=== PATIENT | female | born 1965 | race Caucasian/White ===

== ENCOUNTER → 2018-03-22 13:19 | Outpatient (CLI) | payer OTHER, SELFPAY ==
--- NOTE | 2018-03-22 | DI.MG.S_ITS ---
UNILATERAL LEFT DIGITAL DIAGNOSTIC MAMMOGRAM 3D/2D WITH ADDITIONAL VIEWS: 03/22/2018 CLINICAL: Additional evaluation requested from prior study. Comparison is made to exams dated: 10/07/2017 mammogram, 05/01/2015 mammogram, and 11/01/2013 mammogram - [facility]. The tissue of the left breast is heterogeneously dense. This may lower the sensitivity of mammography. There are grouped regional pleomorphic calcifications in the left breast lower aspect anterior depth at the 6 o'clock position measuring 1.6 cm x 2.3 cm x 1.6 cm in extent. These are increased in number and area of involvement from prior exam. There are also coarse calcifications more consistent with dystrophic calcifications in the outer left breast. No other significant masses or calcifications are seen in the breast. IMPRESSION: SUSPICIOUS OF MALIGNANCY 2.3 cm area of grouped regional pleomorphic calcifications in the left breast are at a moderate suspicion for malignancy. A stereotactic biopsy is recommended. These results and recommendations were discussed with the patient in person at the time of the exam by [facility] Radiologist Dr. Cosmo Cabrera. This exam was interpreted at Station ID: [id number]. NOTE: For mammograms, a report in lay terms will be sent to the patient. Approximately 15% of breast malignancies will not be visualized mammographically. In the management of a palpable breast mass, a negative mammogram must not discourage biopsy of a clinically suspicious lesion. Electronically Signed By: Tyler Shin M.D. ecl/:03/22/2018 14:27:46 letter sent: Biopsy Required ACR BI-RADS Category 4c: Suspicious abnormality - moderate concern but not classic for malignancy 3344F
== END ==
PROVIDERS: PCP Physician Assistant; Visit Provider Physician Assistant
DX: R92.1 Mammographic calcification found on diagnostic imaging of breast (principal)
CPT/HCPCS: 77065; G0279

== ENCOUNTER → 2018-09-22 10:08 | Outpatient (CLI) | payer OTHER, SELFPAY ==
--- NOTE | 2018-09-22 | DI.RAD.S_ITS ---
PROCEDURE: XR HIP W PEL IF DONE LT 2V INDICATIONS: Other specified disorders of kidney and ureter TECHNIQUE: AP pelvis with lateral view(s) of the left hip(s). COMPARISON: None. FINDINGS: Bones: No fractures or dislocations. Pelvic ring appears intact. No suspicious bony lesions. Soft tissues: The visualized bowel gas pattern is normal. No suspicious soft tissue calcifications. IMPRESSION: No fracture or dislocation. Dictated by: Octavia Murphy M.D. on 09/22/2018 at 11:35 Approved by: Octavia Murphy M.D. on 09/22/2018 at 11:36
== END ==
PROVIDERS: PCP Physician Assistant; Visit Provider Physician Assistant
DX: N28.89 Other specified disorders of kidney and ureter (principal); M25.552 Pain in left hip
CPT/HCPCS: 73502

== ENCOUNTER → 2018-09-26 17:34 | Outpatient (CLI) | payer OTHER, SELFPAY ==
--- NOTE | 2018-09-26 | DI.MRI.S_ITS ---
PROCEDURE: MR SHOULDER LT WO CON INDICATIONS: LEFT SHOULDER PAIN TECHNIQUE: Noncontrast oblique coronal T2 fast spin echo with fat saturation, oblique sagittal T1 spin echo and T2 fast spin echo with fat saturation, axial T1 spin echo and T2 fast spin echo with fat saturation through the shoulder. COMPARISON: None. FINDINGS: Image quality: Excellent. Rotator cuff: There is high-grade partial-thickness tear of the supraspinatus tendon. The infraspinatus and subscapularis tendons appear intact throughout. Sagittal images demonstrate no muscle atrophy. Bones and bursae: No bone marrow contusions or fractures. There is moderate acromioclavicular severe glenohumeral joint degeneration. The acromion demonstrates conventional anatomy, without an os acromiale. No pathologic subacromial-subdeltoid or subcoracoid bursal fluid is present. Capsule and soft tissues: Degenerative fraying of the glenoid labrum. In the absence of intra-articular contrast, glenohumeral ligaments appear intact. The long head of the biceps tendon demonstrates normal location and morphology. The rotator interval appears normal, without fibrosis. The coracohumeral ligament is normal in thickness. There is moderate glenohumeral joint effusion. IMPRESSION: 1. High-grade partial-thickness tear of the supraspinatus tendon. 2. Severe glenohumeral joint degeneration. 3. Moderate acromioclavicular joint degeneration. 4. Degenerative fraying of the glenoid labrum. 5. Moderate glenohumeral joint effusion. Dictated by: Octavia Murphy M.D. on 09/27/2018 at 8:40 Approved by: Octavia Murphy M.D. on 09/27/2018 at 17:48
== END ==
PROVIDERS: PCP Physician Assistant; Visit Provider Physician Assistant
DX: M25.512 Pain in left shoulder (principal); M75.112 Incomplete rotator cuff tear or rupture of left shoulder, not specified as traumatic; M19.012 Primary osteoarthritis, left shoulder; M25.412 Effusion, left shoulder
CPT/HCPCS: 73221

== ENCOUNTER → 2020-09-11 14:07 | Outpatient (CLI) | payer OTHER, SELFPAY ==
--- NOTE | 2020-09-11 14:10 | DI.MG.S_ITS ---
BILATERAL DIGITAL DIAGNOSTIC MAMMOGRAM 3D/2D: 09/11/2020 CLINICAL: Per MD order, dense breast tissue on mammogram, hx of benign breast bx, screening for malignant neoplasm of breast. Per the patient, CBE done 06/2020 and it was normal. She denies any symptoms and is unsure why a diagnostic exam was ordered. Comparison is made to exams dated: 03/22/2018 mammogram, 10/07/2017 mammogram, and 05/01/2015 mammogram - [facility]. The tissue of both breasts is heterogeneously dense. This may lower the sensitivity of mammography. There are stable benign calcifications in the left breast. There also is a biopsy clip in the left breast. No significant masses, calcifications, or other findings are seen in either breast. There has been no significant interval change. IMPRESSION: BENIGN There is no mammographic evidence of malignancy. A 1 year screening mammogram is recommended. This exam was interpreted at Station ID: [id number]. NOTE: For mammograms, a report in lay terms will be sent to the patient. Approximately 15% of breast malignancies will not be visualized mammographically. In the management of a palpable breast mass, a negative mammogram must not discourage biopsy of a clinically suspicious lesion. Electronically Signed By: Hair Evans acr/penrad:09/11/2020 14:37:08 letter sent: Normal Exam ACR BI-RADS Category 2: Benign Finding(s) 3342F
== END ==
PROVIDERS: PCP Physician Assistant; Referring Provider Specialist; Visit Provider Specialist
DX: R92.2 Inconclusive mammogram (principal); Z98.890 Other specified postprocedural states
CPT/HCPCS: 77066; G0279

== ENCOUNTER → 2021-07-02 13:07 | Outpatient (CLI) | payer OTHER, SELFPAY ==
--- NOTE | 2021-07-02 13:11 | DI.RAD.S_ITS ---
PROCEDURE: XR CERVICAL SPINE 2V OR 3V INDICATIONS: NECK PAIN AND STIFFNESS TECHNIQUE: 3 view(s) of the cervical spine were acquired. COMPARISON: None. FINDINGS: Bones: No fractures or dislocations to the T1 level. The lateral masses of C1 appear intact on the odontoid view. No suspicious bony lesions. Loss of lordosis which could be related to muscle spasm, rigidity or simply positional. Trace retrolisthesis C6-C7. Multilevel disc degeneration, most notably and severe at the C6-C7 level and moderate to severe at the C5-C6 level. Mild multilevel mid and lower cervical spine facet joint arthropathy and uncovertebral hypertrophy. Soft tissues: No prevertebral soft tissue swelling. IMPRESSION: Loss of lordosis and multilevel spondylosis. Dictated by: Casey Crawley [facility] Interpreted: Cosmo Cabrera MD on 07/02/2021 at 13:23 Transcribed by: THERESA on 07/02/2021 at 13:25 Approved by: Cosmo Cabrera M.D. on 07/02/2021 at 15:35
== END ==
PROVIDERS: PCP Physician Assistant; Referring Provider Physician Assistant; Visit Provider Physician Assistant
DX: M54.2 Cervicalgia (principal); R20.0 Anesthesia of skin; M47.812 Spondylosis without myelopathy or radiculopathy, cervical region
CPT/HCPCS: 72040

== ENCOUNTER → 2021-07-02 13:41 | Outpatient (CLI) | payer OTHER, SELFPAY | PROVIDERS: PCP Physician Assistant; Referring Provider Student in an Organized Health Care Education/Training Program; Visit Provider Student in an Organized Health Care Education/Training Program | DX: R20.2 Paresthesia of skin (principal) | CPT/HCPCS: 95885; 95886; 95912 ==

== ENCOUNTER → 2023-02-18 12:47 | Outpatient (CLI) | payer BC, SELFPAY ==
--- NOTE | 2023-02-18 | DI.MG.S_ITS ---
BILATERAL DIGITAL SCREENING MAMMOGRAM 3D/2D WITH CAD: 02/18/2023 CLINICAL: Routine screening. Comparison is made to exams dated: 09/11/2020 mammogram, 03/22/2018 mammogram, 10/07/2017 mammogram, and 05/01/2015 mammogram - [facility]. Both breasts are heterogeneously dense, which may obscure small masses (category c / 51-75% glandular tissue). Current study was also evaluated with a Computer Aided Detection (CAD) system. The left breast has post-biopsy findings. There is a possible new 0.6 cm oval equal density asymmetry in the left breast middle depth superior region seen on the mediolateral oblique view only. No other significant masses, calcifications, or other findings are seen in either breast. IMPRESSION: INCOMPLETE: NEEDS ADDITIONAL IMAGING EVALUATION The possible new 0.6 cm oval equal density asymmetry in the left breast is indeterminate. Additional views with possible ultrasound are recommended. Based on the Tyrer Cuzick model (a risk assessment model) the patient's lifetime risk is 10.7% and her 10 year risk is 4.0%. According to the ACR, ACS, and NCCN guidelines, an annual breast MRI exam along with mammogram is recommended if the patient's lifetime risk is 20% or greater. This exam was interpreted at Station ID: [id number]. NOTE: For mammograms, a report in lay terms will be sent to the patient. Approximately 15% of breast malignancies will not be visualized mammographically. In the management of a palpable breast mass, a negative mammogram must not discourage biopsy of a clinically suspicious lesion. Electronically Signed By: Enmanuel Moon M.D. aty/:02/18/2023 17:27:25 letter sent: Additional Imaging Needed ACR BI-RADS Category 0: Incomplete 3340F
== END ==
PROVIDERS: PCP Physician Assistant; Referring Provider Physician Assistant; Visit Provider Physician Assistant
DX: Z12.31 Encounter for screening mammogram for malignant neoplasm of breast (principal)
CPT/HCPCS: 77063; 77067

== ENCOUNTER → 2023-03-22 10:09 | Outpatient (CLI) | payer BC, SELFPAY ==
--- NOTE | 2023-03-22 | DI.US.S_ITS ---
PROCEDURE: US ABDOMEN LIMITED INDICATIONS: ELEVATED AST ALT TECHNIQUE: Real-time scanning was performed of the abdominal and retroperitoneal organs, with image documentation. COMPARISON: None. FINDINGS: Liver: Increased in echogenicity. Normal in size. Gallbladder: Within normal limits. No gallstones or gallbladder wall thickening. Biliary ducts: Intrahepatic bile ducts are non-dilated. Extrahepatic bile duct caliber measures 3 mm. Normal is 6-7 mm or less in diameter, or 10 mm or less post-cholecystectomy. Pancreas: Visualized portions of the pancreas are sonographically normal. The pancreas tail is not well seen. IMPRESSION: Increased hepatic echogenicity noted possibly related to hepatic steatosis but other sources of hepatocellular disease or hepatic cirrhosis cannot be excluded. Recommend clinical correlation. Dictated by: Dale William M.D. on 03/22/2023 at 13:38 Approved by: Dale William M.D. on 03/22/2023 at 13:39
--- NOTE | 2023-03-22 | DI.MG.S_ITS ---
UNILATERAL LEFT DIGITAL DIAGNOSTIC MAMMOGRAM 3D/2D WITH ADDITIONAL VIEWS: 03/22/2023 CLINICAL: Additional evaluation requested from prior study. Comparison is made to exams dated: 02/18/2023 mammogram, 09/11/2020 mammogram, and 03/22/2018 mammogram - [facility]. The left breast is heterogeneously dense, which may obscure small masses (category c / 51-75% glandular tissue). The left breast has post-operative findings. The possible 0.6 cm oval equal density asymmetry in the left breast middle depth central to the nipple seen on the mediolateral oblique view only is no longer seen and most likely is fibroglandular tissue. This is not confirmed with additional views. No other significant masses or calcifications are seen in the breast. IMPRESSION: INCOMPLETE: NEEDS ADDITIONAL IMAGING EVALUATION An ultrasound is recommended to confirm resolution of the asymmetry in the left breast middle depth central to the nipple seen on the mediolateral oblique view only. This was performed immediately following this exam. Based on the Tyrer Cuzick model (a risk assessment model) the patient's lifetime risk is 10.7% and her 10 year risk is 4.0%. According to the ACR, ACS, and NCCN guidelines, an annual breast MRI exam along with mammogram is recommended if the patient's lifetime risk is 20% or greater. This exam was interpreted at Station ID: [id number]. NOTE: For mammograms, a report in lay terms will be sent to the patient. Approximately 15% of breast malignancies will not be visualized mammographically. In the management of a palpable breast mass, a negative mammogram must not discourage biopsy of a clinically suspicious lesion. Electronically Signed By: Olimpia atkinson/:03/22/2023 11:05:02 ACR BI-RADS Category 0: Incomplete 3340F
--- NOTE | 2023-03-22 | DI.US.S_ITS ---
LIMITED ULTRASOUND OF LEFT BREAST: 03/22/2023 CLINICAL: Patient returns today to evaluate an asymmetry in the left breast. Comparison is made to exams dated: 03/22/2023 mammogram, 02/18/2023 mammogram, 09/11/2020 mammogram - [facility], 04/04/2018 specimen, 04/04/2018 stereotactic biopsy - [facility], and 03/22/2018 mammogram - [facility]. Color flow ultrasound of the left breast 2-4 o'clock region was performed. Coffman scale images of the real-time examination were reviewed. There is a 6 mm oval cyst in the left breast at 4 o'clock anterior depth. This oval cyst is anechoic. This probably correlates with mammography findings. Color flow imaging demonstrates that there is no vascularity present. No other sonographic findings are present. IMPRESSION: BENIGN The 6 mm simple cyst in the left breast probably corresponds to the less prominent mammogram finding, and is benign. No other sonographic abnormalities. Return to annual mammogram screening schedule is recommended. Findings and recommendations were conveyed to the patient at time of exam. This exam was interpreted at Station ID: [id number]. Electronically Signed By: Olimpia atkinson/:03/22/2023 11:30:45 letter sent: Normal Exam Ultrasound BI-RADS: 2 Benign
== END ==
PROVIDERS: PCP Physician Assistant; Referring Provider Physician Assistant; Visit Provider Physician Assistant
DX: R92.8 Other abnormal and inconclusive findings on diagnostic imaging of breast (principal); N60.02 Solitary cyst of left breast; R74.01 Elevation of levels of liver transaminase levels
CPT/HCPCS: 76642; 76705; 77065; G0279

== ENCOUNTER → 2025-04-18 15:47 | Outpatient (CLI) | payer BC, SELFPAY ==
--- NOTE | 2025-04-18 15:49 | DI.MG.S_ITS ---
MM screening mammo BI: 04/18/2025. BI-RADS: 2 CLINICAL: 59-year old female for bilateral screening mammogram. Tyrer-Cuzick lifetime risk of 11.2%. No personal or first-degree family history of breast cancer. The patient had prior bilateral breast biopsies. PRIOR EXAMS 03/22/2023, 02/18/2023, 09/11/2020, 04/04/2018, MAMMOGRAPHY TECHNIQUE: 2D and 3D (tomosynthesis) digital mammographic views obtained, with additional images as needed for full coverage. Current study was also evaluated with a Computer Aided Detection (CAD) system. DENSITY C. The breasts are heterogeneously dense, which may obscure small masses. MAMMOGRAPHY FINDINGS Right: Biopsy marker present on the right. There are no suspicious masses, calcifications, or other findings in the breast. Left: Benign-appearing calcifications noted on the left. There are no suspicious masses, calcifications, or other findings in the breast. IMPRESSION: * No evidence of malignancy with benign findings. RECOMMENDATIONS Bilateral * Annual screening mammography. OVERALL ASSESSMENT CATEGORY BI-RADS-2: Benign. The [employer] recommends annual screening mammography beginning at age 40 for women with average risk of breast cancer. ELECTRONICALLY SIGNED: Enmanuel Moon M.D. on 04/19/2025 at 07:16:04 AM PT Interpreting Station ID: [id number]
== END ==
LOC: MAMMO 15:48
PROVIDERS: PCP Physician Assistant; Referring Provider Physician Assistant; Visit Provider Physician Assistant
DX: Z12.31 Encounter for screening mammogram for malignant neoplasm of breast (principal); R92.333 Mammographic heterogeneous density, bilateral breasts; R92.1 Mammographic calcification found on diagnostic imaging of breast
CPT/HCPCS: 77063; 77067